=== PATIENT | male | born 1965 | race Caucasian/White ===

== ENCOUNTER 2021-08-01 09:37 | Outpatient (CLI) | payer OTHER ==
[~2021-08-01 09:37] MED LIST: CELEBREX100 MG PO; FLEXERIL10 MG PO
== END 2021-08-01 09:49 | disposition home or self-care (01) ==
LOC: RAD 09:37
PROVIDERS: ATTEND Physical Medicine & Rehabilitation
DX: M25.78 Osteophyte, vertebrae (principal); M54.2 Cervicalgia; M54.5 Low back pain; M54.6 Pain in thoracic spine

== ENCOUNTER 2021-08-22 09:58 | Outpatient (CLI) | payer OTHER | END 2021-08-24 08:01 | disposition home or self-care (01) | LOC: LAB 09:58 | PROVIDERS: ATTEND Internal Medicine Gastroenterology | DX: N28.89 Other specified disorders of kidney and ureter (principal); R10.13 Epigastric pain ==

== ENCOUNTER → 2021-08-24 | Outpatient (CLI) | payer OTHER | END | disposition home or self-care (01) | LOC: TOM 07:40 | PROVIDERS: ATTEND Internal Medicine Gastroenterology | DX: R16.1 Splenomegaly, not elsewhere classified (principal); I70.8 Atherosclerosis of other arteries; K22.89 Other specified disease of esophagus; R10.13 Epigastric pain ==